=== PATIENT | female | born 1985 | race African-American/Black ===

== ENCOUNTER 2017-01-19 00:09 | Inpatient (IN) ==
[2017-01-19] MEDS ORDERED: TERBUTALINE 1 MG/1 ML VIAL SUBCUT PRN (01:15)
[2017-01-19] MEDS ORDERED: ONDANSETRON 4 MG/2 ML VIAL IV PRN ×2 (01:15→12:18)
[2017-01-19] MEDS ORDERED: BUTORPHANOL 2 MG/ML VIAL IV PRN (01:15)
[2017-01-19] MEDS ORDERED: LACTATED RINGERS 500 ML IV PRN (01:15)
[2017-01-19] MEDS ORDERED: LACTATED RINGERS 1,000 ML IV ONE (01:18)
[2017-01-19] MEDS ORDERED: ePHEDrine 50 MG/ML AMP IV PRN (01:18)
[2017-01-19] MEDS ORDERED: CITRIC ACID/SODIUM CITRATE 30 ML UDCUP PO ONE (01:18)
[2017-01-19] MEDS ORDERED: ONDANSETRON 4 MG/2 ML VIAL IV ONE (01:18)
[2017-01-19] MEDS ORDERED: diphenhydrAMINE 50 MG/1 ML VIAL IV PRN (01:18)
[2017-01-19] MEDS ORDERED: PROMETHAZINE 25 MG/1 ML VIAL IM ONE (01:18)
[2017-01-19] MEDS ORDERED: hydrOXYzine HCL 25 MG/1 ML VIAL IM PRN (01:18)
[2017-01-19] MEDS ORDERED: LACTATED RINGERS 250 ML IV PRN (01:18)
[2017-01-19] MEDS ORDERED: FAMOTIDINE 20 MG TABLET PO ONE (01:18)
[2017-01-19] MEDS ORDERED: fentaNYL 2 MCG/ROPIV 0.2% EPID 150 ML EPIDURAL SCH (01:30)
[2017-01-19] MEDS ORDERED: FAMOTIDINE 20 MG/2 ML VIAL IV SCH (01:30)
[2017-01-19] MEDS ORDERED: LACTATED RINGERS 1,000 ML IV SCH ×2 (01:30)
[2017-01-19] MEDS ORDERED: OXYTOCIN/LR 20 UNIT/1,000 ML BAG IV SCH (01:30)
[2017-01-19 01:49] LABS: Basophils # 0.1 10*3/uL (0.0-0.2); Basophils % 0.5 % (0.0-0.8); Eosinophils # 0.1 10*3/uL (0.0-0.87); Eosinophils % 1.2 % (0.00-10.9); Hematocrit 35.9 VOL% (35.7-47.0); Hemoglobin 12.1 GM/DL (12.0-16.0); Immature Granulocytes % 1.2 %; Immature Granulocytes Absolute 0.14 #; Lymphocytes # 2.4 10*3/uL (1.4-4.0); Lymphocytes % 21.5 % (21.3-54.2); Mean Corpuscular HGB Conc 33.7 GM/DL (32-36); Mean Corpuscular Hemoglobin 29 PG (27-34); Mean Corpuscular Volume 84.9 FL (87-102); Mean Platelet Volume 11.4 FL (9.6-12.0); Monocytes % 8.4 % (1.7-12.7); Neutrophils # 7.6 10*3/uL (1.4-7.4); Neutrophils % 67.2 % (38.7-73.9); Platelet Count 150 T/CUMM (130-400); Red Blood Count 4.23 MC/CUMM (3.8-5.5); Red Cell Distribution Width 13.3 % (9.3-17.3); White Blood Count 11.3 T/CUMM (4-12)
[2017-01-19 02:04] LABS: Alanine Aminotransferase 28 U/L (13-56); Albumin 2.9 G/DL (3.4-5.0); Alkaline Phosphatase 89 U/L (45-117); Aspartate Amino Transferase 23 U/L (0-37); Bilirubin,Total < 0.39 MG/DL (0.2-1.0); Blood Urea Nitrogen 10 MG/DL (7-18); Calcium 9.2 MG/DL (8.5-10.1); Glucose 96 MG/DL (74-106); Potassium 4.3 MMOL/L (3.5-5.1); Sodium 136 MMOL/L (136-145); Total Protein 6.8 G/DL (6.4-8.3)
[2017-01-19] MEDS: LACTATED RINGERS 1,000 ML IV SCH ×2 (08:27→10:32)
[2017-01-19] MEDS ORDERED: CITRIC ACID/SODIUM CITRATE 30 ML UDCUP ONE (09:39)
[2017-01-19] MEDS ORDERED: DIPH/TET/ACEL PERT BOOSTER VACCINE 0.5 ML VIAL IM ONE (12:18)
[2017-01-19] MEDS ORDERED: HYDROCORTISONE 2.5% RECTAL CREAM 30 GM TUBE TOP PRN (12:18)
[2017-01-19] MEDS ORDERED: WITCH HAZEL PADS 100/JAR TOP PRN (12:18)
[2017-01-19] MEDS ORDERED: ACETAMINOPHEN 325 MG TABLET PO PRN (12:18)
[2017-01-19] MEDS ORDERED: OXYTOCIN/LR 20 UNIT/1,000 ML BAG IV ONE (12:18)
[2017-01-19] MEDS ORDERED: oxyCODONE/ACETAMINOPHEN 5-325 MG TABLET PO PRN (12:18)
[2017-01-19] MEDS ORDERED: MEASLES/MUMPS/RUBELLA VACCINE 0.5 ML VIAL SUBCUT ONE (12:18)
[2017-01-19] MEDS ORDERED: RHO(D) IMMUNE GLOBULIN 300 MCG SYRINGE IM ONE (12:18)
[2017-01-19] MEDS ORDERED: BENZOCAINE 20%/MENTHOL 0.5% SPRAY 56 GM CAN TOP PRN (12:18)
[2017-01-19] MEDS ORDERED: LANOLIN 50% CREAM 0.3 OZ TUBE TOP PRN (12:18)
[2017-01-19] MEDS ORDERED: BISACODYL 10 MG SUPP RECTAL PRN (12:18)
[2017-01-19 14:37] LABS: Apearance,Urine CLEAR (Clear); Bilirubin,Urine Negative (Negative); Blood, Urine Negative (Negative); Glucose,Urine (UA) Negative (Negative); Ketones,Urine Negative (Negative); Mucus,Urine Occasional /LPF (Occasional); Nitrite,Urine Negative (Negative); Protein,Urine 30 MG/DL; RBC,Urine 2 /HPF (0-4); Squamous Epithelial Cell,Urine Occasional /HPF (0-10); Urine Color Yellow (Yellow); Urine Specific Gravity 1.012 (1.001-1.035); Urine Urobilinogen < 2.0 EU/DL (0.2-1.0); WBC,Urine <1 /HPF (0-6)
[2017-01-19] MEDS: DOCUSATE SODIUM 100 MG CAPSULE PO SCH (21:31)
[2017-01-19] MEDS: IBUPROFEN 800 MG TABLET PO PRN (21:31)
[2017-01-20 06:17] LABS: Basophils # 0.1 10*3/uL (0.0-0.2); Basophils % 0.5 % (0.0-0.8); Eosinophils # 0.1 10*3/uL (0.0-0.87); Hematocrit 34.3 VOL% (35.7-47.0); Hemoglobin 11.2 GM/DL (12.0-16.0); Immature Granulocytes % 0.9 %; Immature Granulocytes Absolute 0.12 #; Lymphocytes # 2.7 10*3/uL (1.4-4.0); Mean Corpuscular HGB Conc 32.7 GM/DL (32-36); Mean Corpuscular Hemoglobin 28 PG (27-34); Mean Corpuscular Volume 86.6 FL (87-102); Mean Platelet Volume 11.6 FL (9.6-12.0); Monocytes % 7.3 % (1.7-12.7); Neutrophils % 71.3 % (38.7-73.9); Platelet Count 140 T/CUMM (130-400); Red Blood Count 3.96 MC/CUMM (3.8-5.5); Red Cell Distribution Width 13.4 % (9.3-17.3)
[2017-01-20] MEDS: DOCUSATE SODIUM 100 MG CAPSULE PO SCH ×2 (08:47→20:40)
[2017-01-20] MEDS: LACTATED RINGERS 1,000 ML IV SCH (12:00)
[2017-01-20] MEDS: oxyCODONE/ACETAMINOPHEN 5-325 MG TABLET PO PRN ×2 (13:53→20:40)
[2017-01-20] MEDS: IBUPROFEN 800 MG TABLET PO PRN (20:40)
[2017-01-21 07:49] VITALS: BP 113/61
[2017-01-21] MEDS: DOCUSATE SODIUM 100 MG CAPSULE PO SCH (09:12)
== END 2017-01-21 11:20 | disposition home or self-care (01) | DRG 560 ==
LOC: N.LDOUT 00:09 → N.LD 00:11 → N.OB 15:41
PROVIDERS: ADMIT Obstetrics & Gynecology; ATTEND Obstetrics & Gynecology